=== PATIENT | female | born 1995 | race Caucasian/White ===

== ENCOUNTER 2024-07-27 16:52 | Emergency (ER) | payer OTHER ==
[2024-07-27 18:26] VITALS: TEMP 98.2
--- NOTE | 2024-07-27 19:23 | ERPHSYRPT ---
- History of Present Illness Time Seen by Provider: 07/27/24 19:20 Historian: patient, family Exam Limitations: no limitations Patient Subjective Stated Complaint: Vomiting Triage Nursing Assessment: Patient ambulated back to ED and transferred self to bed. Patient A+O X 3. Patient's skin pink, warm and dry. Patient complains of headache, bodyaches, non productive cough, sore throat, N/V and diarrhea for 2 days. Lungs clear a/p scotty. Patient states her brother has covid and she has been exposed to him. Patient denies pain or discomfort. Physician History: This is a 29-year-old white female patient who arrives by private vehicle because of flulike symptoms. Patient has a primary care provider, Dr. Samson. Patient symptoms include vomiting, headache, nausea, diarrhea, body aches, productive cough and sore throat. Her symptoms have been present for 2 days. Her brother was diagnosed with COVID infection approximately 1 week ago and she was unaware of this. Patient has history of asthma, anxiety and depression. Her room air oxygen saturation level is 100%. Timing/Duration: day(s) (2) Activities at Onset: none Quality: aching (Head aching, body aching) Severity of Pain-Max: mild Severity of Pain-Current: mild Associated Symptoms: diarrhea, nausea, vomiting, No chest pain Previous symptoms: no prior history, no recent treatment Allergies/Adverse Reactions: cefaclor [From [facility]] Allergy (Verified 07/27/24 18:15) Penicillins Allergy (Verified 07/27/24 18:15) Home Medications: Duloxetine HCl 30 mg [Cymbalta 30 MG Capsule] 1 cap PO DAILY 07/27/24 [History] Hx Influenza Vaccination/Date Given: Yes Hx Pneumococcal Vaccination/Date Given: No Immunizations Up to Date: Yes Travel Risk - International Travel Have you traveled outside of the country in past 3 weeks: No - Emerging Infectious Disease Are you exhibiting symptoms associated with any current EIDs: Yes Symptoms: Cough: New Onset, Diarrhea, Headaches/Body Aches/, Vomitting - Review of Systems Constitutional: No Symptoms Eyes: No Symptoms Ears, Nose, & Throat: Throat Pain Respiratory: Cough Cardiac: No Symptoms Abdominal/Gastrointestinal: Nausea, Vomiting, Diarrhea, Appetite Changes Musculoskeletal: Arthralgias, Myalgias Skin: No Symptoms Neurological: No Symptoms Psychological: No Symptoms Endocrine: No Symptoms Hematologic/Lymphatic: No Symptoms Immunological/Allergic: No Symptoms All Other Systems: Reviewed and Negative - Past Medical History Pertinent Past Medical History: No Neurological History: No Pertinent History ENT History: No Pertinent History Cardiac History: No Pertinent History Respiratory History: Asthma Endocrine Medical History: No Pertinent History Musculoskeletal History: No Pertinent History GI Medical History: No Pertinent History History: No Pertinent History Psycho-Social History: Anxiety, Depression Female Reproductive Disorders: No Pertinent History - Past Surgical History Past Surgical History: Yes Neuro Surgical History: No Pertinent History Cardiac: No Pertinent History Respiratory: No Pertinent History Gastrointestinal: No Pertinent History Genitourinary: No Pertinent History Musculoskeletal: No Pertinent History Female Surgical History: Section Other Surgical History: Gum graft to bottom gums. C section X 3 - Female History Hx Last Menstrual Period: IUD Hx Now: No - Social History Smoking Status: Never smoker Exposure to second hand smoke: No Drug Use: none - Social Determinants of Health Will the patient participate in the screening: Yes Do you worry about a steady place to live?: No Do you have any problems with any of the following?: No known problems In the past 12 months,have you had to go without utilities?: No Transportation Issues: No Has anyone in your support network made you feel unsafe?: No Have you or anyone in your house had to go without enough: No - Nursing Vital Signs Nursing Vital Signs: Initial Vital Signs O2 Sat by Pulse Oximetry 100 07/27/24 18:17 Pain Scale Pain Intensity 0 - Physical Exam General Appearance: mild distress, alert, anxiety Eye Exam: PERRL/EOMI, eyes nml inspection Ears, Nose, Throat Exam: normal ENT inspection, moist mucous membranes Neck Exam: normal inspection, non-tender, supple, full range of motion Respiratory Exam: normal breath sounds, lungs clear, airway intact, No chest tenderness, No respiratory distress Cardiovascular Exam: regular rate/rhythm, normal heart sounds, normal peripheral pulses Gastrointestinal/Abdomen Exam: soft, normal bowel sounds, No tenderness, No guarding Pelvic Exam: not done Rectal Exam: not done Back Exam: normal inspection, normal range of motion, No CVA tenderness, No vertebral tenderness Extremity Exam: normal inspection, normal range of motion, pelvis stable Neurologic Exam: alert, oriented x 3, cooperative, infection prevention coordinator II-XII nml as tested, nml cerebellar function, nml station & gait, sensation nml Skin Exam: normal color, warm, dry Lymphatic Exam: No adenopathy SpO2 Interpretation: normal SpO2: 98 O2 Delivery: Room Air - Course Nursing assessment & vital signs reviewed: Yes Ordered Tests: Active Orders 24 hr Category Date Time Status IV Insertion STAT Care 07/27/24 19:21 Active Pulse Oximetry (ED) STAT Care 07/27/24 19:21 Active CHEST 1 VIEW (PORTABLE) Stat Exams 07/27/24 20:17 Taken BLOOD CULTURE Stat Lab 07/27/24 19:22 Received CBC W DIFF Stat Lab 07/27/24 18:40 Completed CMP Stat Lab 07/27/24 18:40 Completed CULTURE,URINE Stat Lab 07/27/24 19:27 Received HCG QUALITATIVE, SERUM Stat Lab 07/27/24 18:40 Completed MONO SCREEN Stat Lab 07/27/24 18:40 Completed UA W/RFX UR CULTURE Stat Lab 07/27/24 19:27 Completed Medication Summary Discontinued Medications Generic Name Dose Route Start Last Admin Trade Name Juanq PRN Reason Stop Dose Admin Hydrocodone Bitart/Acetaminophen 10 ml 07/27/24 19:22 07/27/24 19:29 Hydrocodone/Acetaminophen 5 Ml Udcup PO 07/27/24 19:23 10 ml STAT STA Administration Hydrocodone Bitart/Acetaminophen Confirm 07/27/24 19:27 Hydrocodone/Acetaminophen 5 Ml Udcup Administered 07/27/24 19:28 Dose 10 ml .ROUTE .STK-MED ONE Sodium Chloride 1,000 mls @ 999 mls/hr 07/27/24 19:21 07/27/24 19:29 Sodium Chloride 0.9% 1000 Ml IV 07/27/24 20:21 999 mls/hr .Q1H1M STA Administration Sodium Chloride Confirm 07/27/24 19:27 Sodium Chloride 0.9% 1000 Ml Administered 07/27/24 19:28 Dose 1,000 mls @ ud .ROUTE .STK-MED ONE Ondansetron HCl 4 mg 07/27/24 19:21 07/27/24 19:29 Ondansetron Hcl 4 Mg/2 Ml Vial IV 07/27/24 19:22 4 mg STAT STA Administration Ondansetron HCl Confirm 07/27/24 19:26 Ondansetron Hcl 4 Mg/2 Ml Vial Administered 07/27/24 19:27 Dose 4 mg .ROUTE .STK-MED ONE Lab/Rad Data: Laboratory Result Diagrams 07/27/24 18:40 07/27/24 18:40 Laboratory Results 07/27/24 07/27/24 07/27/24 Range/Units 19:30 19:30 19:27 WBC (3.98-10.04) x10^3/uL RBC (3.93-5.22) x10^6/uL Hgb (11.2-15.7) g/dL Hct (34.1-44.9) % MCV (79.4-94.8) fL MCH (25.6-32.2) pg MCHC (32.2-35.5) g/dL RDW (11.7-14.4) % Plt Count (182-369) x10^3/uL MPV (9.4-12.3) fL Gran % (34.0-71.1) % Immature Gran % (Auto) (0.001-0.429) % Nucleat RBC Rel Count (0.00-0.2) % Eos # (Auto) (0.04-0.36) x10^3/uL Immature Gran # (Auto) (0.001-0.031) x10^3u/L Absolute Lymphs (auto) (1.18-3.74) x10^3/uL Absolute Monos (auto) (0.24-0.86) x10^3/uL Absolute Nucleated RBC (0.00-0.012) x10^3u/L Lymphocytes % (19.3-51.7) % Monocytes % (4.7-12.5) % Eosinophils % (0.7-5.8) % Basophils % (0.1-1.2) % Absolute Granulocytes (1.56-6.13) x10^3/uL Basophils # (0.01-0.08) x10^3/uL Sodium (135-145) mmol/L Potassium (3.5-5.1) mmol/L Chloride (98-107) mmol/L Carbon Dioxide (22-30) mmol/L Anion Gap (5-15) MEQ/L BUN (7-17) mg/dL Creatinine (0.52-1.04) mg/dL Estimated GFR ML/MIN Glucose (74-106) mg/dL Calcium (8.4-10.2) mg/dL Total Bilirubin (0.2-1.3) mg/dL AST (14-36) U/L ALT (0-35) U/L Alkaline Phosphatase (38-126) U/L Serum Total Protein (6.3-8.2) g/dL Albumin (3.5-5.0) g/dL Serum HCG, Qual (NEGATIVE) Urine Color Yellow (Yellow) Urine Appearance Turbid A (Clear) Urine pH 7.0 (4.6-8.0) Ur Specific [place]is 1.020 (1.005-1.030) Urine Protein Negative (Negative) Urine Glucose (UA) Negative (Negative) mg/dL Urine Ketones Negative (Negative) Urine Blood Moderate A (Negative) Urine Nitrite Positive A (Negative) Urine Bilirubin Negative (Negative) Urine Urobilinogen 1.0 A (0.2) mg/dL Ur Leukocyte Esterase Moderate A (Negative) U Hyaline Cast (Auto) NONE SEEN (0-2) /LPF Urine Microscopic RBC 0-2 (0-5) /HPF Urine Microscopic WBC 21-50 A (0-5) /HPF Ur Epithelial Cells Moderate A (None Seen) /HPF Urine Bacteria Many A (None Seen) /HPF Urine Culture Reflexed YES (NO) Monoscreen (NEGATIVE) Influenza Type A Ag NEGATIVE (NEGATIVE) Influenza Type B Ag NEGATIVE (NEGATIVE) RSV (PCR) NEGATIVE (NEGATIVE) SARS-CoV-2 (PCR) NEGATIVE (NEGATIVE) Group A Strep Antibody NOT DETECTED (NEGATIVE) 07/27/24 07/27/24 07/27/24 Range/Units 18:40 18:40 18:40 WBC 5.6 (3.98-10.04) x10^3/uL RBC 4.39 (3.93-5.22) x10^6/uL Hgb 12.7 (11.2-15.7) g/dL Hct 38.5 (34.1-44.9) % MCV 87.7 (79.4-94.8) fL MCH 28.9 (25.6-32.2) pg MCHC 33.0 (32.2-35.5) g/dL RDW 13.5 (11.7-14.4) % Plt Count 217 (182-369) x10^3/uL MPV 10.6 (9.4-12.3) fL Gran % 58.9 (34.0-71.1) % Immature Gran % (Auto) 0.2 (0.001-0.429) % Nucleat RBC Rel Count 0.0 (0.00-0.2) % Eos # (Auto) 0.02 L (0.04-0.36) x10^3/uL Immature Gran # (Auto) 0.01 (0.001-0.031) x10^3u/L Absolute Lymphs (auto) 1.74 (1.18-3.74) x10^3/uL Absolute Monos (auto) 0.53 (0.24-0.86) x10^3/uL Absolute Nucleated RBC 0.00 (0.00-0.012) x10^3u/L Lymphocytes % 30.9 (19.3-51.7) % Monocytes % 9.4 (4.7-12.5) % Eosinophils % 0.4 L (0.7-5.8) % Basophils % 0.2 (0.1-1.2) % Absolute Granulocytes 3.32 (1.56-6.13) x10^3/uL Basophils # 0.01 (0.01-0.08) x10^3/uL Sodium 139 (135-145) mmol/L Potassium 3.8 (3.5-5.1) mmol/L Chloride 103 (98-107) mmol/L Carbon Dioxide 25 (22-30) mmol/L Anion Gap 14.0 (5-15) MEQ/L BUN 14 (7-17) mg/dL Creatinine 0.68 (0.52-1.04) mg/dL Estimated GFR 121.6 ML/MIN Glucose 91 (74-106) mg/dL Calcium 9.5 (8.4-10.2) mg/dL Total Bilirubin 0.80 (0.2-1.3) mg/dL AST 25 (14-36) U/L ALT 20 (0-35) U/L Alkaline Phosphatase 67 (38-126) U/L Serum Total Protein 7.7 (6.3-8.2) g/dL Albumin 4.7 (3.5-5.0) g/dL Serum HCG, Qual NEGATIVE (NEGATIVE) Urine Color (Yellow) Urine Appearance (Clear) Urine pH (4.6-8.0) Ur Specific Lor[place] (1.005-1.030) Urine Protein (Negative) Urine Glucose (UA) (Negative) mg/dL Urine Ketones (Negative) Urine Blood (Negative) Urine Nitrite (Negative) Urine Bilirubin (Negative) Urine Urobilinogen (0.2) mg/dL Ur Leukocyte Esterase (Negative) U Hyaline Cast (Auto) (0-2) /LPF Urine Microscopic RBC (0-5) /HPF Urine Microscopic WBC (0-5) /HPF Ur Epithelial Cells (None Seen) /HPF Urine Bacteria (None Seen) /HPF Urine Culture Reflexed (NO) Monoscreen WEAKLY POSITIVE A (NEGATIVE) Influenza Type A Ag (NEGATIVE) Influenza Type B Ag (NEGATIVE) RSV (PCR) (NEGATIVE) SARS-CoV-2 (PCR) (NEGATIVE) Group A Strep Antibody (NEGATIVE) - Progress Progress: improved, pain not gone completely, re-examined Progress Note: 07/27/24 20:15 My medical decision making is based on review of the patient's past medical history, review the patient's medication list, reviewed patient drug allergy list, history present illness and physical findings on examination. The workup in this patient includes placement of a intravenous line, infusion of normal saline solution, hydrocodone elixir for sore throat and cough, Zofran i ntravenously, crystalloid solution infusion, CBC, CMP, viral swabs, group A strep test, monotest, urinalysis and test. We also ordered a chest x- ray. Differential diagnosis includes but is not limited to viral illness, urinary tract infection, dehydration, strep pharyngitis, pneumonia, 07/27/24 20:59 I interpreted the patient's laboratory data results. Based on the laboratory data results, the patient has a significant urinary tract infection and mononucleosis. I interpreted the preliminary chest x-ray report. The patient's chest x-ray does not show any acute cardiopulmonary process. Counseled pt/family regarding: lab results, diagnosis, need for follow-up, rad results Medical Desision Making - Diagnostic Testing Diagnostic test were ordered, analyzed, and reviewed by me: Yes Radiological Interpretation: Interpreted by me, Teleradiologist Report - Risk of complications The pt has a mod risk of morbidity or mortality based on: Need for prescription drug management - Departure Departure Disposition: Home Clinical Impression: Mononucleosis, UTI (urinary tract infection) Condition: Stable Critical Care Time: No Referrals: MELVIN SAMSON MD [Primary Care Provider] - Follow up/PCP as directed Additional Instructions: Drink plenty of fluids. Take your antibiotics as prescribed. Use Tylenol and ibuprofen for pain and fever control. Take your other medication as prescribed. Call your primary care provider tomorrow, 07/28/2024, to make arrangements for follow-up appointment for further evaluation and management. Forms: Work/School Release Form Prescriptions: Ciprofloxacin [Cipro 500 MG] 500 mg PO BID #14 tablet
[2024-07-27] MEDS ORDERED: Zofran 4 MG/2 ML VIAL ONE (19:26)
[2024-07-27] MEDS ORDERED: HYDROCODONE-ACETAMIN 2.5-108/5 ML SOLUTION ONE (19:27)
[2024-07-27] MEDS ORDERED: Sodium Chloride 0.9% 1000 ML 1,000 ML ONE (19:27)
[2024-07-27] MEDS: Sodium Chloride 0.9% 1000 ML 1,000 ML IV STA (19:29)
[2024-07-27] MEDS: Zofran 4 MG/2 ML VIAL IV STA (19:29)
[2024-07-27] MEDS: HYDROCODONE-ACETAMIN 2.5-108/5 ML SOLUTION PO STA (19:29)
[2024-07-27 19:32] LABS: Absolute Neutrophil Ct (ANC) 3.32 x10^3/uL (1.56-6.13); BASOPHIL % 0.2 % (0.1-1.2); Basophil (Absolute #) 0.01 x10^3/uL (0.01-0.08); Eosinophil % 0.4 % (0.7-5.8); Eosinophil (Absolute #) 0.02 x10^3/uL (0.04-0.36); Hematocrit 38.5 % (34.1-44.9); Hemoglobin 12.7 g/dL (11.2-15.7); IMMATURE GRAN # 0.01 x10^3u/L (0.001-0.031); IMMATURE GRAN % 0.2 % (0.001-0.429); Lymphocyte (Absolute #) 1.74 x10^3/uL (1.18-3.74); Lymphocytes % 30.9 % (19.3-51.7); Mean Cell Volume 87.7 fL (79.4-94.8); Mean Corpuscular Hemoglobin 28.9 pg (25.6-32.2); Mean Platelet Volume 10.6 fL (9.4-12.3); Monocyte (Absolute #) 0.53 x10^3/uL (0.24-0.86); Monocytes % 9.4 % (4.7-12.5); Neutrophil % 58.9 % (34.0-71.1); Platelet Count 217 x10^3/uL (182-369); Red Blood Count 4.39 x10^6/uL (3.93-5.22); Red Cell Distribution Width 13.5 % (11.7-14.4); White Blood Count 5.6 x10^3/uL (3.98-10.04)
[2024-07-27 19:35] LABS: Appearance Turbid (Clear); Bacteria Many /HPF (None Seen); Bilirubin Negative (Negative); Blood Moderate (Negative); Epithelial Cells Moderate /HPF (None Seen); Glucose, Urine Negative (Negative); Hyaline Casts NONE SEEN /LPF (0-2); Ketones Negative (Negative); Leukocyte Esterase Moderate (Negative); Nitrite Positive (Negative); Protein,Urine Dip Negative (Negative); RBC 0-2 /HPF (0-5); WBC 21-50 /HPF (0-5)
[2024-07-27 19:38] LABS: HCG SERUM TEST NEGATIVE (NEGATIVE)
[2024-07-27 20:01] VITALS: RESP 19
[2024-07-27 20:16] LABS: INFLUENZA A NEGATIVE (NEGATIVE); INFLUENZA B NEGATIVE (NEGATIVE); RESPIRATORY SYNCTIAL VIRUS NEGATIVE (NEGATIVE); SARS-CoV-2 Xpert Express NEGATIVE (NEGATIVE)
[2024-07-27 20:17] VITALS: O2SAT 98
[2024-07-27 20:21] LABS: ALBUMIN 4.7 g/dL (3.5-5.0); BILIRUBIN,TOTAL 0.8 mg/dL (0.2-1.3); Calcium 9.5 mg/dL (8.4-10.2); Creatinine 1 0.68 mg/dL (0.52-1.04); EST GLOMERULAR FILTRATION RATE 121.6 ML/MIN; Potassium 3.8 mmol/L (3.5-5.1); Total Protein 7.7 g/dL (6.3-8.2)
[2024-07-27] MEDS ORDERED: Levofloxacin 500 MG Tablet ONE (21:02)
[2024-07-27] MEDS: Levofloxacin 500 MG Tablet PO ONE (21:03)
[2024-07-27 21:10] VITALS: BP 129/78; PULSE 65
--- NOTE | 2024-07-28 08:40 | XRAY ---
Indication: Productive cough. Comparison: None Portable chest demonstrates normal heart and lungs. Bony thorax intact with moderate double curvature scoliosis.
== END 2024-07-27 21:25 | disposition home or self-care (01) ==
LOC: ED 16:52
DX: B27.90 Infectious mononucleosis, unspecified without complication (principal); R11.2 Nausea with vomiting, unspecified; R51.9 Headache, unspecified; R19.7 Diarrhea, unspecified; N39.0 Urinary tract infection, site not specified
CPT/HCPCS: 0241U; 36415; 71045; 80053; 81001; 84703; 85025; 86308; 87040; 87077; 87086; 87186; 87651; 94760; 96360; 96374; 96375; 99284; J2405; A9270-GY